=== PATIENT | male | born 1965 | race Caucasian/White ===

== ENCOUNTER 2021-10-13 06:20 | Emergency (ER) | payer BC, SELFPAY ==
[2021-10-13 06:22] VITALS: BP 150/95; PULSE 55; RESP 18; TEMP 36.6; O2SAT 96
[2021-10-13 06:27] VITALS: BP 144/91; PULSE 75; RESP 18; O2SAT 95; O2SAT 98
[2021-10-13 06:28] VITALS: O2SAT 99
[2021-10-13 06:30] VITALS: RESP 18; O2SAT 97
[2021-10-13 06:31] VITALS: BP 127/91; PULSE 74; RESP 16; O2SAT 97
[2021-10-13 06:44] LABS: Basophils Percent Auto 0.1 % (0.2-1.2); Eosinophils Percent Auto 0.1 % (0-4.4); Hematocrit 45.6 % (42.0-52.0); Hemoglobin 16.7 g/dL (14.0-18.0); Immature Granulocyte Absolute 0.04 K/mm3 (0.00-0.031); Immature Granulocyte Percent A 0.3 % (0-0.5); Lymphocytes Absolute Auto 1.65 K/mm3 (0.9-3.2); Lymphocytes Percent Auto 14.2 % (18.3-44.2); Mean Corpuscular HGB Conc 36.6 g/dl (32-36); Mean Corpuscular Volume 84.6 fl (80-100); Mean Platelet Volume 10.6 fl (7.4-10.4); Monocytes Absolute Auto 0.6 K/mm3 (0.1-0.6); Monocytes Percent Auto 5.2 % (2.6-8.5); Neutrophils Absolute Auto 9.3 K/mm3 (1.3-6.7); Neutrophils Percent Auto 80.1 % (45.5-73.1); Platelet Count Result 198 k/mm3 (150-375); Red Blood Count 5.39 M/mm3 (4.6-6.20); Red Cell Distribution Width 12.1 % (11.5-14.5); White Blood Count 11.6 K/mm3 (4.5-10.0)
[2021-10-13 06:54] LABS: Alanine Aminotransferase 28 U/L (6-50); Albumin Level 4.8 g/dL (3.5-5.1); Alkaline Phosphatase 70 U/L (38-126); Anion Gap 7 mmol/L (8-16); Aspartate Amino Transferase 31 U/L (17-59); Bilirubin,Total 0.8 mg/dL (0.2-1.3); Blood Urea Nitrogen 20 mg/dL (9-20); Calcium 9.5 mg/dL (8.4-10.2); Carbon Dioxide 25 mmol/L (22-30); Chloride 103 mmol/L (98-107); Estimated CRCL calculation 110 ml/min; Estimated Glomerular Filt Rate > 60; Glucose 117 mg/dL (65-110); Potassium 4.4 mmol/L (3.4-5.0); Sodium 135 mmol/L (137-145)
--- NOTE | 2021-10-13 07:06 | PC.NURSE ---
REPORT TO KIRTI BROTHERS
[2021-10-13] MEDS: methylPREDNISolone SOD SUCC 125 MG VIAL IV PUSH (07:24)
[2021-10-13] MEDS: diphenhydrAMINE HCl INJ 50 MG/ML VIAL 25 MG IV PUSH (07:24)
--- NOTE | 2021-10-13 07:30 | ED.GENADULT ---
HPI - General Adult General Chief complaint: Allergic Reaction Stated complaint: allergic rash Time Seen by Provider: 10/13/21 07:07 History of Present Illness HPI narrative: 56-year-old otherwise healthy here with complaints of rash of the upper extremities and lower extremities started yesterday. Patient states that he was working on his deck , he states that the wound is treated has not seen any poison landen. He denies any shortness of breath, he also mentions that he did consult his primary doctor yesterday and he was started on methylprednisolone, congestion here today with intense itching and rash. Related Data Allergies Allergy/AdvReac Type Severity Reaction Status Date / Time No Known Allergies Allergy Verified 01/01/18 08:00 Review of Systems Review of Systems: No fever Eyes: Comments: No eye drainage ENT: Comments: No irritation in his throat Cardiovascular: Comments: Denies chest pain Respiratory: Comments: Denies S of breath Gastrointestinal: Comments: No abdominal pain Musculoskeletal: Comments: No arthralgia Integumentary/Breasts: Comments: As per HPI Exam Narrative: GENERAL: Well-appearing, well-nourished, and in no acute distress. HEAD: Normocephalic, atraumatic. EYES: PERRLA and EOMI. ENT: . Mucous membranes moist. NECK: Supple. CHEST: Clear to auscultation. No respiratory distress. HEART: Regular rate and rhythm. No murmur heard. Normal peripheral pulses. ABDOMEN: Soft, nontender, nondistended, normal active bowel sounds. EXTREMITIES: Normal range of motion. No edema. SKIN: Warm, dry, has erythematous rash on both forearms and both thighs NEURO: No focal deficits. Alert and oriented x3. PSYCH: Normal mood and affect. Course Course Emergency Course: He was given IV Solu-Medrol and Benadryl here in the ER. Advised him to continue methylprednisolone as prescribed Vital Signs Vital signs: Vital Signs Temperature 36.6 C 10/13/21 06:22 Pulse Rate 55 L 10/13/21 06:22 Respiratory Rate 18 10/13/21 06:22 Blood Pressure 150/95 H 10/13/21 06:22 Pulse Oximetry 96 10/13/21 06:22 Oxygen Delivery Room Air 10/13/21 06:22 Temperature 36.6 C 10/13/21 06:22 Pulse Rate 74 10/13/21 06:31 Respiratory Rate 16 05/25/22 06:31 Blood Pressure 127/91 H 10/13/21 06:31 Pulse Oximetry 97 10/13/21 06:31 Oxygen Delivery Room Air 10/13/21 06:22 Medical Decision Making Vital Signs Vital Signs: Vital Signs Temperature 36.6 C 10/13/21 06:22 Pulse Rate 55 L 10/13/21 06:22 Respiratory Rate 18 10/13/21 06:22 Blood Pressure 150/95 H 10/13/21 06:22 Pulse Oximetry 96 10/13/21 06:22 Oxygen Delivery Room Air 10/13/21 06:22 Temperature 36.6 C 10/13/21 06:22 Pulse Rate 74 10/13/21 06:31 Respiratory Rate 16 10/13/21 06:31 Blood Pressure 127/91 H 10/13/21 06:31 Pulse Oximetry 97 10/13/21 06:31 Oxygen Delivery Room Air 10/13/21 06:22 Lab Data Result diagrams: 10/13/21 06:39 10/13/21 06:39 Labs: Lab Results 10/13/21 10/13/21 Range/Units 06:39 06:39 WBC 11.6 H (4.5-10.0) K/mm3 RBC 5.39 (4.6-6.20) M/mm3 Hgb 16.7 (14.0-18.0) g/dL Hct 45.6 (42.0-52.0) % MCV 84.6 (80-100) fl MCH 31.0 (26-34) pg MCHC 36.6 H (32-36) g/dl RDW 12.1 (11.5-14.5) % Plt Count 198 (150-375) k/mm3 MPV 10.6 H (7.4-10.4) fl Immature Gran % (Auto) 0.3 (0-0.5) % Neut % (Auto) 80.1 H (45.5-73.1) % Lymph % (Auto) 14.2 L (18.3-44.2) % [place] % (Auto) 5.2 (2.6-8.5) % Eos % (Auto) 0.1 (0-4.4) % Baso % (Auto) 0.1 L (0.2-1.2) % Lymph # (Auto) 1.65 (0.9-3.2) K/mm3 [place] # (Auto) 0.6 (0.1-0.6) K/mm3 Eos # (Auto) 0.0 (0-0.3) K/mm3 Baso # (Auto) 0.0 (0.0-0.1) K/mm3 Abs Immat Gran (auto) 0.04 H (0.00-0.031) K/mm3 Absolute Neuts (auto) 9.3 H (1.3-6.7) K/mm3 Absolute Nucleated RBC 0.0 (0.0-0.012) K/mm3 Nucleated RBC % 0.0 (0.0-0.2)
[2021-10-13 07:51] VITALS: BP 128/90; PULSE 63; RESP 16; O2SAT 96
== END 2021-10-13 07:52 | disposition home or self-care (01) ==
PROVIDERS: Emergency Medicine; Emergency Provider Family Medicine; PCP Internal Medicine
DX: L25.9 Unspecified contact dermatitis, unspecified cause (principal)
CPT/HCPCS: 36415; 80053; 85025; 96374; 96375; 99285; J1200; J2930

== ENCOUNTER 2023-07-05 02:47 | Emergency (ER) | payer BC, SELFPAY ==
[2023-07-05] VITALS (44 sets, daily range): BP systolic 99–141; BP diastolic 59–99; PULSE 58–78; RESP 13–24; TEMP 36.7; O2SAT 93–100
--- NOTE | ~2023-07-05 | CT_ITS ---
Clinical Indication: Chest pain radiating to abdomen and back CT Scan of the Chest, Abdomen, and Pelvis with Contrast: Technique: Contiguous sections were acquired throughout the chest, abdomen, and pelvis after intraven ous administration of 100 cc of Omnipaque 350. Dose reduction technique was used on this scan by uti conchitaing automated exposure control and iterative reconstruction technique. The dose-length product (DL P) was 1325.33 mGy-cm. Findings: There is no evidence of any significant mediastinal, hilar or axillary lymphadenopathy. The mediastin al soft tissues appear normal. No aortic aneurysm or dissection. No pulmonary embolus seen. There is no evidence of pleural or pericardial effusion. The lungs are clear. No pulmonary nodules or infiltrates are noted. Probable diffuse fatty infiltration of liver. The spleen, pancreas, adrenals and kidneys are within n ormal limits. Tiny gallstone present. No evidence of aortic aneurysm or dissection. No lymphadenopat hy. No bowel obstruction or bowel wall thickening. There is no evidence to suggest acute appendicitis. Urinary bladder is unremarkable. Prostate gland mildly enlarged. No ascites. Impression: No acute abnormalities seen. Tiny gallstone. Fatty infiltration of the liver. Reviewed, dictated and finalized at location . PROMOTION AGENT Impression: No acute abnormalities seen. Tiny gallstone. Fatty infiltration of the liver.
--- NOTE | ~2023-07-05 | XR_ITS ---
Clinical Indication: Chest pain PA and lateral views of the chest: Comparison: None Findings: The lungs are clear, without evidence of focal consolidation or pleural effusion. Cardiome diastinal silhouette is within normal limits. Bones and soft tissues are unremarkable. Impression: Normal chest. Reviewed, dictated and finalized at location . IFIED PARALEGAL Impression: Normal chest.
--- NOTE | 2023-07-05 02:53 | ECG_ITS ---
Measurements Intervals [place] Rate: 63 P: 44 TX: 146 QRS: 48 QRSD: 87 T: 47 QT: 375 QTc: 385 Interpretive Statements SINUS RHYTHM NONSPECIFIC T-WAVE ABNORMALITY ABNORMAL ECG NO PREVIOUS ECG AVAILABLE FOR COMPARISON Electronically Signed On 07-05-2023 11:51:36 SEALER OPERATOR by Juan R Licona M.D.
[2023-07-05] MEDS: ASPIRIN 81 MG CHEWABLE TABLET 324 MG PO (03:01)
[2023-07-05 03:03] LABS: Basophils Percent Auto 0.5 % (0.2-1.2); Eosinophils Absolute Auto 0.2 K/mm3 (0-0.3); Eosinophils Percent Auto 2.3 % (0-4.4); Hematocrit 45.1 % (42.0-52.0); Hemoglobin 15.7 g/dL (14.0-18.0); Immature Granulocyte Absolute 0.03 K/mm3 (0.00-0.031); Immature Granulocyte Percent A 0.3 % (0-0.5); Lymphocytes Absolute Auto 3.06 K/mm3 (0.9-3.2); Lymphocytes Percent Auto 34.7 % (18.3-44.2); Mean Corpuscular HGB Conc 34.8 g/dl (32-36); Mean Corpuscular Hemoglobin 30.4 pg (26-34); Mean Corpuscular Volume 87.4 fl (80-100); Mean Platelet Volume 10.3 fl (7.4-10.4); Monocytes Absolute Auto 0.8 K/mm3 (0.1-0.6); Monocytes Percent Auto 9.4 % (2.6-8.5); Neutrophils Absolute Auto 4.7 K/mm3 (1.3-6.7); Neutrophils Percent Auto 52.8 % (45.5-73.1); Platelet Count Result 180 k/mm3 (150-375); Red Blood Count 5.16 M/mm3 (4.6-6.20); Red Cell Distribution Width 12.2 % (11.5-14.5); White Blood Count 8.8 K/mm3 (4.5-10.0)
[2023-07-05 03:15] LABS: Prothrombin Time 13.7 Seconds (11.1-14.7)
[2023-07-05 03:16] LABS: Partial Thromboplastin Time 29.7 SECONDS (22.3-36.8)
[2023-07-05 03:27] LABS: Troponin I < 0.012 ng/mL (0.000-0.034)
[2023-07-05 03:38] LABS: Alanine Aminotransferase 40 U/L (6-50); Albumin Level 4.5 g/dL (3.5-5.1); Alkaline Phosphatase 54 U/L (38-126); Anion Gap 6 mmol/L (8-16); Aspartate Amino Transferase 55 U/L (17-59); Bilirubin,Total 1.1 mg/dL (0.2-1.3); Blood Urea Nitrogen 20 mg/dL (9-20); Calcium 9.6 mg/dL (8.4-10.2); Carbon Dioxide 30 mmol/L (22-30); Chloride 103 mmol/L (98-107); Estimated CRCL calculation 84 ml/min; Estimated Glomerular Filt Rate > 60; Glucose 99 mg/dL (65-110); Lipase 72 U/L (23-300); Potassium 4.4 mmol/L (3.4-5.0); Sodium 139 mmol/L (137-145)
[2023-07-05 04:08] LABS: Influenza A QL RT-PCR Negative (Negative); Influenza B QL RT-PCR Negative (Negative); RSV RNA, RT-PCR Negative (Negative); SARS-CoV-2 RNA PCR Negative (Negative)
--- NOTE | 2023-07-05 04:17 | ED.GENADULT ---
HPI - General Adult General Chief complaint: Chest Pain Stated complaint: Chest pressure, abdominal pain Time Seen by Provider: 07/05/23 02:59 History of Present Illness HPI narrative: This is a 57-year-old male presenting ED with chief complaint of chest pain. Chest pain woke the patient from sleep around 1:00 a.m.. He has felt like something sitting on his chest, pain migrated down to his abdomen and then to his back. Patient has never had pain like this before. He has nausea but no vomiting. No diaphoresis or exertional component. No numbness tingling weakness to any extremity or confusion. patient notes he has had a lot of gurgling to his stomach and the urge to belch. Related Data Allergies Allergy/AdvReac Type Severity Reaction Status Date / Time No Known Allergies Allergy Verified 01/01/18 08:00 Exam Narrative: APPEARANCE: No apparent distress. Head: atraumatic. EYES: EOMI, NOSE: Atraumatic NECK: Trachea midline RESPIRATORY: No increased rate of breathing , clear to auscultation CARDIOVASCULAR: RRR, equal pulses in all extremities ABDOMINAL: Non-distended, soft nontender no guarding or rebound MUSCULOSKELETAl: No obvious deformities NEURO: Alert. Moving 4/4 extremities SKIN:: Warm, dry. Normal color PSYCHIATRIC: Normal affect Course Vital Signs Vital signs: Vital Signs Temperature 98.1 F 07/05/23 02:49 Pulse Rate 78 07/05/23 02:49 Respiratory Rate 20 07/05/23 02:49 Blood Pressure 141/99 H 07/05/23 02:49 Pulse Oximetry 100 07/05/23 02:49 Oxygen Delivery Room Air 07/05/23 02:49 Temperature 98.1 F 07/05/23 02:49 Pulse Rate 63 07/05/23 15:01 Respiratory Rate 21 H 07/05/23 15:01 Blood Pressure 122/95 H 07/05/23 15:01 Pulse Oximetry 97 07/05/23 15:01 Oxygen Delivery Room Air 07/05/23 02:49 Medical Decision Making [facility] Narrative Medical decision making narrative: -Course: 57-year-old male a woken from sleep with chest pain that migrated to his abdomen and then to his back. 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 patient will be pending transfer to an outside facility. care transferred to the oncoming physician -DDX includes but is not limited to: Aortic pathology, ACS, gas, anxiety, pleurisy, gastritis, lumbago -Co-morbidities complicating care: Obstructive sleep apnea, nonalcohol liver -Social determinants of health: patient works as line maintenance at a [employer], lives with his -Independent interpretation of studies: laboratory studies within normal limits. 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 -Discussion of Management/Consultants:[facility] Dr. Givens- Vascular surgery - Waitlisted [facility] -Interventions: aspirin, Tylenol, Maalox -Shared decision making / Disposition: Tranferred Vital Signs Vital Signs: Vital Signs Temperature 98.1 F 07/05/23 02:49 Pulse Rate 78 07/05/23 02:49 Respiratory Rate 20 07/05/23 02:49 Blood Pressure 141/99 H 07/05/23 02:49 Pulse Oximetry 100 07/05/23 02:49 Oxygen Delivery Room Air 07/05/23 02:49 Temperature 98.1 F 07/05/23 02:49 Pulse Rate 63 07/05/23 15:01 Respiratory Rate 21 H 07/05/23 15:01 Blood Pressure 122/95 H 07/05/23 15:01 Pulse Oximetry 97 07/05/23 15:01 Oxygen Delivery Room Air 07/05/23 02:49 Lab Data 07/05/23 02:55 07/05/23 02:55 Labs: Lab Results 07/05/23 07/05/23 07/05/23 Range/Units 02:55 03:25 06:00 WBC 8.8 (4.5-10.0) K/mm3 RBC 5.16 (4.6-6.20) M/mm3 Hgb 15.7 (14.0-18.0) g/dL Hct 45.1 (42.0-52.0) % MCV 87.4 (80-100) fl MCH 30.4 (26-34) pg MCHC 34.8 (32-36) g/dl RDW 12.2 (11.5-14.5) % Plt Count 180 (150-375) k/mm3 MPV 10.3 (7.4-10.4) fl Immature Gran % (Auto) 0.3 (0-0.5) % Neut % (Auto) 52.8 (45.5-73.1) % Lymph % (Auto) 34.7 (18.3-44.2) % [place] % (Auto) 9.4 H (2.6-8.5) %
--- NOTE | 2023-07-05 04:48 | PC.NURSE ---
Patient ambulated to the restroom with steady gate. patient states chest and abdominal pain have resolved.
[2023-07-05] MEDS: MAG HYDROX/AL HYDROX/SIMETH 30 ML UDC PO (05:17)
[2023-07-05] MEDS: ACETAMINOPHEN 500 MG TABLET 1000 MG PO (05:17)
[2023-07-05 06:32] LABS: Troponin I < 0.012 ng/mL (0.000-0.034)
--- NOTE | 2023-07-05 06:49 | ECG_ITS ---
Measurements Intervals [place] Rate: 62 P: 45 [place]: 148 QRS: 48 QRSD: 85 T: 52 QT: 347 QTc: 354 Interpretive Statements SINUS RHYTHM NONSPECIFIC T-WAVE ABNORMALITY ABNORMAL ECG COMPARED TO ECG 07/05/2023 02:57:41 NO SIGNIFICANT CHANGES Electronically Signed On 07-05-2023 11:52:19 MITER GRINDER OPERATOR by Juan R Licona M.D.
--- NOTE | 2023-07-05 06:49 | PC.NURSE ---
Spoke with Stephanie at [facility]. She states the patient has been accepted, and we will get a call when a bed is available.
--- NOTE | 2023-07-05 08:09 | PC.NURSE ---
Spoke with transfer center and gave them the pts BP readings per their request.
--- NOTE | 2023-07-05 09:26 | ECG_ITS ---
Measurements Intervals [place] Rate: 67 P: 39 TX: 141 QRS: 45 QRSD: 89 T: 56 QT: 358 QTc: 379 Interpretive Statements SINUS RHYTHM NONSPECIFIC T-WAVE ABNORMALITY ABNORMAL ECG COMPARED TO ECG 07/05/2023 06:53:08 NO SIGNIFICANT CHANGES Electronically Signed On 07-05-2023 11:53:35 [place] JUDGE by Juan R Licona M.D.
[2023-07-05 09:31] LABS: Troponin I < 0.012 ng/mL (0.000-0.034)
== END 2023-07-05 15:32 | disposition short-term general hospital (02) ==
PROVIDERS: Emergency Provider Emergency Medicine; PCP Internal Medicine
DX: I77.79 Dissection of other specified artery (principal); Z20.822 Contact with and (suspected) exposure to COVID-19; G47.33 Obstructive sleep apnea (adult) (pediatric)
CPT/HCPCS: 36415; 71046; 71275; 74174; 80053; 83605; 83690; 84484; 85025; 85610; 85730; 87637; 93005; 99285; A9270; Q9967